=== PATIENT | female | born 1940 | race Caucasian/White ===

== ENCOUNTER 2018-01-30 20:16 | Observation (INO) | payer MEDICARE, BC ==
[~2018-01-30] VITALS: Ht 170.2 cm; Wt 90.8 kg
[~2018-01-30 20:16] MED LIST: ESTRADIOL1 MG PO; GABAPENTIN300 MG PO; SYNTHROID150 MCG PO
[2018-01-30] MEDS ORDERED: COZAAR50 MG PO (20:28)
--- NOTE | 2018-01-30 22:46 | NUR ---
HANDOFF REPORT RECEIVED FROM ED RN ITALO. PT TO ARRIVE TO MS VIA STRETCHER.
--- NOTE | 2018-01-30 23:05 | NUR ---
PT ARRIVES TO MED SURG FLOOR VIA STRETCHER, ABLE TO AMBULATE TO RESTROOM WITH SBA FOR VOID. LUNGS CLEAR THROUGHOUT ALL LOBES, PT TACHYCARDIC HR 106, 94% ON ROOM AIR. 100.3 TEMPERATURE ORALLY, ADMINISTERED PRN TYLENOL. PT GIVEN EMESIS BAG, C/O NAUSEA, NO EMESIS AT THIS TIME. IVF INFUSING WNL. PT ON CLEAR LIQUID DIET, EDUCATION PROVIDED. BRUISE NOTED ON LEFT BREAST FROM FALL EARLIER IN WEEK, SKIN INTACT. CALL LIGHT IN REACH, PT INSTRUCTED TO CALL BEFORE GETTING OUT OF BED.
--- NOTE | 2018-01-30 23:45 | NUR ---
IV PUMP BEEPING, ASSISTED PT TO REPOSITION TO SIDE WITH PILLOW, PILLOW UNDER ARM. LIGHTS OFF IN ROOM, CALL LIGHT IN REACH.
--- NOTE | 2018-01-31 00:06 | NUR ---
PT SLEEPING, AWAKENS TO VOICE. PT GIVEN CONTACT CASE, SOLUTION FOR CONTACT. IVF INFUSING WNL. PT GIVEN EDUCATIONAL INFORMATION PACKET. NO ADDL REQUESTS, PERSONAL SUPPLIES, CALL LIGHT IN REACH.
--- NOTE | 2018-01-31 02:00 | NUR ---
PT SLEEPING, EYES CLOSED, SNORING, LIGHTS OFF IN ROOM.
--- NOTE | 2018-01-31 02:45 | NUR ---
PT OUT OF BED INDEPENDENTLY, YUDY ADAN IN ROOM. PT UP FOR VOID WITH SBA, BACK TO BED. SITTING UP AT SIDE OF BED. PT C/O NAUSEA. PRN ZOFRAN IV ADMINISTERED. BED ALARM SET AT THIS TIME. IVF INFUSING WNL. PT EATING CRACKERS OUT OF PURSE, CONTINUED EDUCATION RE CLEAR LIQUID DIET GIVEN BY EATING DISORDER SPECIALIST, AND RN. PT VERBALIZES UNDERSTANDING, PURSE IN CLOSET AT THIS TIME. CALL LIGHT IN REACH.
--- NOTE | 2018-01-31 03:39 | NUR ---
IV PUMP BEEPING, STRAIGHTENED PTS ARM, REPOSITIONED ON PILLOW. PT SLEEPING, RR 16. BED ALARM SET. CALL LIGHT IN REACH.
--- NOTE | 2018-01-31 03:53 | NUR ---
PT SLEEPING, DISTAL OCCLUSION WITH IV, SITE WNL. PT INSTRUCTED TO KEEP ARM STRAIGHT, AWAKENS AND BACK TO SLEEP. LUNG SOUNDS CLEAR THROUGHOUT. HR REGULAR RHYTHM 76. SPO2 90% ON ROOM AIR WHILE SLEEPING. BED ALARM IN PLACE. CALL LIGHT IN REACH, LIGHTS OFF IN ROOM.
--- NOTE | 2018-01-31 05:58 | NUR ---
VITALS AND I&OS DONE AND CHARTED. HELPED HER TO THE BATHROOM AND BACK TO BED. BEDSIDE TABLE AND CALL LIGHT WITHIN REACH.
--- NOTE | 2018-01-31 06:48 | NUR ---
IN PT ROOM TO ADMINISTER THYROID MEDICATION, PT ASLEEP, AWAKENS TO VOICE. PT DENIES ANY PAIN. IVF INFUSING WNL. CALL LIGHT IN REACH.
--- NOTE | 2018-01-31 07:45 | NUR ---
RECIEVED BEDSIDE REPORT FROM YUDY PRUITT. PT SLEEPING, DID WAKE SLIGHTLY TO VOICE. PT REPORTED BEING "VERY SLEEPY". NO O2 IN PLACE, NS RUNNING AT 75ML/HR. BED ALARM ON. NO REPORTS OF NAUSEA AT THIS TIME.
--- NOTE | 2018-01-31 08:29 | NUR ---
REFILEED PATIENT'S GLASS WITH ICE WATER. PATIENT IS SLEEPING.
--- NOTE | 2018-01-31 11:49 | NUR ---
PT SET UP FOR SHOWER. ABLE TO SHOWER INDEPENDENTLY, WILL CALL WHEN SHE IS DONE FOR ASSISTANCE.
[2018-01-31] MEDS ORDERED: SLOW-MAG71.5 MG PO (12:30)
[2018-01-31] MEDS ORDERED: CALCIUM 500 +1 EAC4 PO (12:30)
--- NOTE | 2018-01-31 12:31 | NUR ---
MED REC COMPLETE
--- NOTE | 2018-01-31 15:23 | NUR ---
RN ASKED PT IF SHE FELT SHE COULD GO HOME SAFELY. PT SEEMED UNSURE, STATED SHE "FEELS LIKE SHE IS GOING BACKWARD". PT WOULD LIKE TO GO HOME TO TAKE CARE OF HER DAUGHTER WITH THE FLU. RN REMINDED HER THAT SHE DOESN'T WANT TO RELAPSE AND GET SICKER. PT ALSO STATED THAT SHE FEELS SHE NEEDS MORE IV FLUIDS. WILL ADVISE DR JAQUEZ WHEN SHE COMES TO REEVALUATE.
--- NOTE | 2018-01-31 17:25 | NUR ---
PT MAINTAINED O2 SATS THIS SHIFT ON ROOM AIR. STATES SHE FEELS "MUCH BETTER". DAUGHTER WHO TAKES CARE OF HER AT HOME DX WITH INFLUENZA THIS AM. CONTINUING IV FLUIDS, PT VOIDING WELL. PT UP TO SHOWER INDEPENDENTLY. PT GREW WEAKER DAY WENT ON. PT A&O X4. FAMILY BETWEEN HER ROOM AND SPOUSE ROOM.
--- NOTE | 2018-01-31 19:00 | NUR ---
SHIFT REPORT RECEIVED. PATIENT APPEARS TO BE SLEEPING. RR 16. IV FLUIDS INFUSING PER ORDER.
--- NOTE | 2018-01-31 20:00 | NUR ---
PATIENT WAS SLEEPING SOUNDLY. AWOKE TO HER NAME. EVENING MEDS GIVEN PER ORDER. PATIENT UP TO THE BATHROOM. SBA, STEADY ON HER FEET. VS WNL. TOLERATING RA. LUNG SOUNDS ARE CLEAR. NO NAUSEA. DENIES PAIN. IV FLUIDS INFUSING PER ORDER, SITE WNL. PATIENT BACK TO BED. DENIES OTHER NEEDS. CALL LIGHT IN REACH.
--- NOTE | 2018-01-31 21:25 | NUR ---
PT COMPLAINED OF PAIN IN BREAST/CHEST AREA FROM A RECENT FALL. MED WITH TYLENOL. SITTING ON EDGE OF BED AT THE MOMENT. CALL LIGHT WITHIN REACH. NO OTHER NEEDS.
--- NOTE | 2018-01-31 23:00 | NUR ---
PATIENT SLEEPING SOUNDLY. IV FLUIDS INFUSING. RR 16.
--- NOTE | 2018-02-01 01:30 | NUR ---
PATIENT APPEARS TO BE RESTING WELL. BREATHING NONLABORED. TOLERATING ROOM AIR. IV FLUIDS INFUSING, SITE WNL.
--- NOTE | 2018-02-01 04:35 | NUR ---
HELPED PT TO THE BATHROOM AND BACK TO BED. FRESH WATER GIVEN. BEDSIDE TABLE AND CALL LIGHT WITHIN REACH.
--- NOTE | 2018-02-01 05:42 | NUR ---
PATIENT SLEPT WELL THROUGHOUT THE NIGHT. FEELS MUCH STRONGER TODAY. APPETITE IMPROVED. ON ROOM AIR. STILL MODERATE AMOUNT OF SPUTUM. LUNG SOUNDS ARE COARSE BUT CLEAR WITH COUGH. NO NAUSEA. PRN TYLENOL FOR PAIN FROM FALL PRIOR TO ADMISSION.
--- NOTE | 2018-02-01 06:00 | NUR ---
iv cordell, wnl. morning meds given per order. patient ordering breakfast. feels ready to go home she says.
--- NOTE | 2018-02-01 06:17 | NUR ---
patient's iv infiltrated and is painful. stoped fluids. called md. orders to dc iv fluids and no new iv.
--- NOTE | 2018-02-01 07:28 | NUR ---
RECIEVED BEDSIDE REPORT FROM YUDY VALERIO. PT AWAKE AND ALERT IN BED. STATES SHE IS "READY TO GO HOME, SHE HAS THINGS TO DO!". PT HAS NO IV ACCESS, ON ROOM AIR. ALL BELONGINGS IN REACH.
[2018-02-01] MEDS ORDERED: OSELTAMIVIR PHO30 MG PO (08:29)
--- NOTE | 2018-02-01 10:54 | NUR ---
DISCHARGE TEACHING DONE. DISCUSSED SAFETY AT HOME, PRECAUTIONS, HYDRATION, AND HAND HYGIENE. PT AND DAUGHTER VERBALIZED UNDERSTAND OF THE NEED TO WEAR A MASK UNTIL 7 DAYS AFTER SYMPTOMS SUBSIDE. PT SENT HOME WITH EXTRA MASKS. DISCUSSED IN DETAIL HAND WASHING TO REDUCE SPREAD OF DISEASE.
== END 2018-02-01 10:51 | disposition home or self-care (01) ==
LOC: ED 20:16 → MS 20:17
PROVIDERS: ADMIT Internal Medicine
DX: J10.1 Influenza due to other identified influenza virus with other respiratory manifestations (principal); R11.2 Nausea with vomiting, unspecified; E86.0 Dehydration; R09.02 Hypoxemia; I10 Essential (primary) hypertension; E89.0 Postprocedural hypothyroidism; Z85.850 Personal history of malignant neoplasm of thyroid; Z79.82 Long term (current) use of aspirin; Z79.890 Hormone replacement therapy; Z79.899 Other long term (current) drug therapy; Z88.5 Allergy status to narcotic agent
CPT/HCPCS: 71046; 80053; 81001; 83690; 85025; 87081; 87502; 87880; 96374; 96376; 99285; G0378; J2405; J7030

== ENCOUNTER 2018-07-02 05:06 | Emergency (ER) | payer MEDICARE, BC ==
[~2018-07-02] VITALS: Ht 170.2 cm; Wt 90.8 kg
[~2018-07-02 05:06] MED LIST changes: +CALCIUM 500 +1 EAC4 PO; +COZAAR50 MG PO; +OSELTAMIVIR PHO30 MG PO; +SLOW-MAG71.5 MG PO
[2018-07-02] MEDS ORDERED: KEFLEX500 MG PO (07:03)
[2018-07-03] MEDS ORDERED: MEDROL4 M1 PO (19:29)
[2018-07-03] MEDS ORDERED: ZOFRAN ODT4 MG PO (19:29)
== END 2018-07-02 07:18 | disposition home or self-care (01) ==
LOC: ED 05:06
DX: J20.9 Acute bronchitis, unspecified (principal); N39.0 Urinary tract infection, site not specified; Z88.8 Allergy status to other drugs, medicaments and biological substances; Z79.899 Other long term (current) drug therapy
CPT/HCPCS: 71045; 80053; 83735; 83880; 84484; 85025; 94640; 99285

== ENCOUNTER 2018-07-03 17:35 | Emergency (ER) | payer MEDICARE, BC ==
[~2018-07-03] VITALS: Ht 170.2 cm; Wt 90.8 kg
[~2018-07-03 17:35] MED LIST changes: +KEFLEX500 MG PO
[2018-07-03] MEDS ORDERED: ZOFRAN ODT4 MG PO (19:29)
[2018-07-03] MEDS ORDERED: MEDROL4 M1 PO (19:29)
== END 2018-07-03 19:45 | disposition home or self-care (01) ==
LOC: ED 17:35
DX: J01.90 Acute sinusitis, unspecified (principal); J20.9 Acute bronchitis, unspecified; N39.0 Urinary tract infection, site not specified; Z88.8 Allergy status to other drugs, medicaments and biological substances; Z79.899 Other long term (current) drug therapy
CPT/HCPCS: 99283

== ENCOUNTER 2019-07-28 17:23 | Emergency (ER) | payer MEDICARE, BC ==
[~2019-07-28] VITALS: Ht 170.2 cm; Wt 90.8 kg
[~2019-07-28 17:23] MED LIST changes: +MEDROL4 M1 PO; +ZOFRAN ODT4 MG PO
[2019-07-28] MEDS ORDERED: VALACYCLOVIR1000 MG PO (17:50)
== END 2019-07-28 19:44 | disposition home or self-care (01) ==
LOC: ED 17:23
DX: M71.22 Synovial cyst of popliteal space [Baker], left knee (principal); Z88.8 Allergy status to other drugs, medicaments and biological substances; Z88.5 Allergy status to narcotic agent; Z85.850 Personal history of malignant neoplasm of thyroid; Z79.899 Other long term (current) drug therapy
CPT/HCPCS: 93971; 99283-25

== ENCOUNTER 2021-03-27 15:57 | Emergency (ER) | payer MEDICARE, BC ==
[~2021-03-27] VITALS: Ht 170.2 cm; Wt 93.0 kg
[~2021-03-27 15:57] MED LIST changes: +VALACYCLOVIR1000 MG PO
== END 2021-03-27 20:14 | disposition home or self-care (01) ==
LOC: ED 15:57
DX: S90.822A Blister (nonthermal), left foot, initial encounter (principal); I10 Essential (primary) hypertension; Z88.8 Allergy status to other drugs, medicaments and biological substances; Z79.899 Other long term (current) drug therapy; Z85.850 Personal history of malignant neoplasm of thyroid
CPT/HCPCS: 10060; 99283-25

== ENCOUNTER 2022-11-27 23:42 | Emergency (ER) | payer MEDICARE, BC ==
[~2022-11-27] VITALS: Ht 170.2 cm; Wt 98.9 kg
[2022-11-28] MEDS ORDERED: LEVOTHYROXINE112 MCG PO (00:43)
== END 2022-11-28 01:20 | disposition home or self-care (01) ==
LOC: ED 23:42
DX: M79.604 Pain in right leg (principal); I10 Essential (primary) hypertension; Z88.8 Allergy status to other drugs, medicaments and biological substances; Z79.899 Other long term (current) drug therapy
CPT/HCPCS: 93971; 99283-25

== ENCOUNTER 2025-11-04 10:36 | Emergency (ER) | payer OTHER, MEDICARE, BC ==
[~2025-11-04] VITALS: Ht 170.2 cm; Wt 104.3 kg
--- OUTSIDE RECORDS SUMMARY | ~2025-11-04 | XMS | Continuity of Care Document ---
Demographics + + + | Address | [address] | | | [place] [address] | + + + | Preferred Language | Unknown | + + + | Marital Status | | + + + | Yazdanism Affiliation | Unknown | + + + | Race | White | + + + | Ethnic Group | Not or | + + + Author + + + | Author | [facility] | + + + | Organization | [facility] | + + + | Address | [address] | | | [place] [address] | + + + | Phone | | + + + Care Team Providers + + + + | Care Stroboscope Operator Name | Role | Phone | + + + + Unavailable | Unavailable | + + + + Allergies No information. Encounters No information. Functional Status No information. Immunizations No information. Medications + + + + | date | description | facility | + + + + | (no date) | MAGNESIUM CHLORIDE | [facility] [place] [facility] [place] | | | | [facility] | + + + + | (no date) | ESTRADIOL | [facility] [place] [facility] [place] | | | | [facility] | + + + + | (no date) | GABAPENTIN | [facility] [place] [facility] [place] | | | | [facility] | + + + + | (no date) | VALACYCLOVIR HCL | [facility] [place] [facility] | | | | [facility] | + + + + | (no date) | CALCIUM CARBONATE/VITAMIN | [facility] [place] [facility] | | | D3 | [facility] | + + + + | (no date) | LEVOTHYROXINE SODIUM | [facility] | | | | [facility] | + + + + | (no date) | LEVOTHYROXINE SODIUM | [facility] | | | | [facility] | + + + + | (no date) | LOSARTAN POTASSIUM | [facility] | | | | [facility] | + + + + Problems No information. Procedures No information. Results/Labs No information. Social History +--------+ + + | date | description | facility | +--------+ + + Vital Signs No information."
[~2025-11-04 10:36] MED LIST changes: +LEVOTHYROXINE112 MCG PO
[2025-11-04] MEDS ORDERED: HYDROCODONE/ACETA 5/325 TAB PO ONE (11:45)
[2025-11-04] MEDS ORDERED: HYDROCODON-ACE1 EA10 PO (13:19)
[2025-11-04 14:16] VITALS: BP 184/89
== END 2025-11-04 14:16 | disposition home or self-care (01) ==
LOC: ED 10:36
DX: S82.432A Displaced oblique fracture of shaft of left fibula, initial encounter for closed fracture (principal); W01.0XXA Fall on same level from slipping, tripping and stumbling without subsequent striking against object, initial encounter; I10 Essential (primary) hypertension; Z88.8 Allergy status to other drugs, medicaments and biological substances
CPT/HCPCS: 73560; 73610; 99283